=== PATIENT | male | born 1980 | race Two or more races ===

== ENCOUNTER 2019-10-27 06:03 | Emergency (ER) | payer BC ==
[~2019-10-27] VITALS: Ht 172.7 cm; Wt 78.0 kg
--- NOTE | 2019-10-27 06:24 | NUR ---
Dr. Otto at bedside for MSE.
[2019-10-27] MEDS ORDERED: KETOROLAC TROMETHAMINE 60 MG INJ IM ONE ×2 (06:30→06:44)
[2019-10-27] MEDS ORDERED: DEXAMETHASONE SOD PHOSPHATE 4 MG INJ IM ONE (06:30)
[2019-10-27] MEDS ORDERED: ACETAMINOPHEN 650 MG/20.3 ML LIQUID UDC PO ONE (06:30)
[2019-10-27] MEDS ORDERED: LIDOCAINE 5% PATCH TD ONE ×2 (06:30→06:44)
[2019-10-27] MEDS ORDERED: DEXAMETHASONE SOD PHOSPHATE 10 MG INJ ONE (06:44)
[2019-10-27] MEDS ORDERED: ACETAMINOPHEN 650 MG/20.3 ML LIQUID UDC ONE (06:44)
--- NOTE | 2019-10-27 07:00 | NUR ---
Bladder scan done, PVR 40ml. DR. Otto aware.
--- NOTE | 2019-10-27 07:13 | NUR ---
Patient discharged to home in stable condition. Written and verbal after care instructions given. Patient verbalizes understanding of instructions. Stressed follow up or return to ER for worsening s/s. patient left with stable gait.
[2019-10-27 07:14] VITALS: BP 115/82
== END 2019-10-27 07:14 | disposition home or self-care (01) ==
LOC: ER 06:11
DX: M54.9 Dorsalgia, unspecified (principal)
CPT/HCPCS: 96372 ×2; 99284; J1100; J1885; A4663